=== PATIENT | female | born 1995 | race Caucasian/White ===

== ENCOUNTER 2018-09-24 08:26 | Inpatient (IN) | payer MEDICAID ==
[~2018-09-24] VITALS: Ht 149.9 cm; Wt 68.0 kg
--- NOTE | 2018-09-24 08:46 | TRIAGE ---
OB Triage Datetime Report Generated by CPN: 09/24/2018 08:46 Datetime: 09/24/2018 08:30 Assessment Type: Triage Maternal Assessment Level of Consciousness: Fully Conscious DTR's/Clonus: DTRs 2+; No Clonus Headache: Denies Blurred Vision: No Respiratory Effort: Unlabored; Regular Rhythm; Equal Expansion Breath Sounds, Left: Clear and Equal Breath Sounds, Right: Clear and Equal Nausea/Vomiting: Denies RUQ Epigastric Pain: Denies Lower Extremities Edema: None Degree: None Upper Extremities Edema: None Degree: None Facial Edema: None Fall Risk Assessment History of Falling: (0) No Secondary Diagnosis: (0) No Ambulatory Aid: (0) Bedrest/Nurse Assist IV Therapy: (0) No Gait: (0) Normal/Bedrest/Immobile Mental Status: (0) Oriented to Own Ability Fall Score: 0 Fall Risk Score Definition: No Risk: No action required Datetime: 09/24/2018 08:22 Time of Arrival: 09/24/2018 08:22 EGA: 40.3 Arrived By: Ambulatory Arrived From: Home Chief Complaint: R/O LABOR Movement: Present Contractions: Regular Time Contractions Began: 09/24/2018 05:00 Rupture of Membranes: Denies Vaginal Discharge: Denies Recent Sexual Intercouse: Denies Abdominal Trauma: Not Applicable Patient Complaints: Contractions Additional Patient Complaints: NONE Time Provider Notified: 09/24/2018 08:42 Provider Notified: DIMITRIS Initial Plan: MONITOR AND VE
[2018-09-24 08:47] VITALS: Ht 149.9 cm; Wt 68.0 kg
[2018-09-24] MEDS: LACTATED RINGER'S 1,000 ML IV SCH ×3 (10:28→13:46)
[2018-09-24] MEDS ORDERED: MISOPROSTOL 200 MCG TAB PR PRN ×2 (10:30→18:30)
[2018-09-24] MEDS ORDERED: OXYTOCIN 30 UNITS/LR 500 ML IV SCH ×2 (10:30)
[2018-09-24] MEDS ORDERED: AMPICILLIN 2 GM/NS (PMX) 100 ML IV ONE (10:30)
[2018-09-24] MEDS ORDERED: METHYLERGONOVINE 0.2 MG INJ IM PRN ×2 (10:30→18:30)
[2018-09-24] MEDS ORDERED: OXYTOCIN 30 UNITS/LR 500 ML IV PRN ×2 (10:30→18:30)
[2018-09-24] MEDS ORDERED: CARBOPROST 250 MCG INJ IM PRN ×2 (10:30→18:30)
[2018-09-24] MEDS ORDERED: LIDOCAINE 1% (MPF) 30 ML INJ INJ PRN (10:30)
[2018-09-24] MEDS ORDERED: BUTORPHANOL 2 MG INJ IV PRN (10:30)
[2018-09-24] MEDS ORDERED: FENTAnyl 2MCG/ML-ROPIV 0.2% 100 ML ONE (12:24)
[2018-09-24] MEDS ORDERED: AMPICILLIN 1 GM/NS (PMX) 50 ML IV SCH (13:00)
--- NOTE | 2018-09-24 14:09 | PREAC ---
Date/Time of Note Date/Time of Note DATE: 09/24/18 TIME: 14:06 Anesthesia Eval and Record Evaluation Time Pre-Procedure Interview DATE: 09/24/18 TIME: 12:15 Age 23 Sex female NPO: 8 hrs Preoperative diagnosis iup @ 39 wks., , labor Planned procedure emanuel Past Medical History Past Medical History: Includes : : (1), Para: (0), Gestational age: (39 wks.) Surgery & Anesthesia Issues No known issue Meds Anticoagulation: No Beta Rodolfo within 24 hr: No Reason Beta Rodolfo not given: Pt. not on B-Rodolfo Current Medications Lactated Ringer's 1,000 ml @ 125 mls/hr Q8H IV Last administered on 09/24/18at 13:46; Admin Dose 125 MLS/HR; Start 09/24/18 at 10:16 Butorphanol Tartrate (Stadol) 2 mg Q2H PRN IV .PAIN SCALE 6-10; Start 09/24/18 at 10:30 Lidocaine (Xylocaine 1% (Mpf)) 30 ml ONCE PRN INJ .EPISIOTOMY; Start 09/24/18 at 10:30 Oxytocin/Lactated Ringer's 500 ml @ 500 mls/hr ONCE POST IV ; Start 08/31 10/18 at 10:30 Oxytocin/Lactated Ringer's 500 ml @ 125 mls/hr POST IV ; Start 09/24/18 at 10:30 Oxytocin/Lactated Ringer's 500 ml @ 0 mls/hr ONCE PRN IV .VAGINAL BLEEDING; Start 09/24/18 at 10:30 Methylergonovine Maleate (Methergine) 0.2 mg ONCE PRN IM .VAGINAL BLEEDING; Start 09/24/18 at 10:30 Carboprost Tromethamine (Hemabate) 250 mcg ONCE PRN IM .VAGINAL BLEEDING; Start 09/24/18 at 10:30 Misoprostol (Cytotec) 1,000 mcg ONCE PRN MT .VAGINAL BLEEDING; Start 09/24/18 at 10:30 Meds reviewed: Yes Allergies Coded Allergies: No Known Allergy (Unverified , 09/24/18) Allergies Reviewed: Yes Labs/Studies Labs Reviewed: Reviewed by anesthesiologist Result Diagram: 09/24/18 1025 Laboratory Tests 09/24/18 10:25 Blood Bank Test 09/24/18 10:25 Antibody Screen NEGATIVE Blood Type A POSITIVE Rh Immune Globulin Candidate NO test: Positive Studies: ECG (n/a), CXR (n/a) Pre-procedure Exam Airway: Adequate mouth opening, Adequate thyromental dist Mallampati: Mallampati II Teeth: Normal Lung: Normal Heart: Normal ASA Physical Status ASA physical status: 2 Emergency: E Planned Anesthetic Neuraxial: Epidural Planned Pain Management Epidural, Local by surgeon Pre-operative Attestations Prior to commencing anesthesia and surgery, the patient was re-evaluated, there was verification of: *The patient's identity *The results of appropriate recent lab work and preoperative vital signs *The above evaluation not changing prior to induction *Anesthetic plan, risk benefits, alternative and complications discussed with patient/family; questions answered; patient/family understands, accepts and wishes to proceed. Nurses Director used RENETTA CHAU MD September 24, 2018 14:08
[2018-09-24] MEDS ORDERED: NALOXONE (0.4 MG/ML) INJ IV PRN (14:30)
[2018-09-24] MEDS ORDERED: FENTAnyl 2MCG/ML-ROPIV 0.2% 100 ML BAG EPI SCH (14:30)
[2018-09-24 17:04] VITALS: BP 112/68; PULSE 78; RESP 18
--- NOTE | 2018-09-24 17:44 | HP ---
Date/Time of Note Date/Time of Note DATE: 09/24/18 TIME: 17:41 OB - History Hx of Present Free Text/Dictation Late entry note. Patient seen at 09 :30 this morning 23 years old 1 with single intrauterine at 40 weeks and 3 days with a BUCKY of 09/21/2018 complaining of uterine contractions. She states good movement. She denies nausea, vomiting, shortness of breath, chest pain, headache, visual changes, vaginal bleeding or LOF. Chief Complaint: Uterine contractions Estimated Due Date: September 21, 2018 : 1 Care: Good Care Ultrasounds: Normal mid trimester US Obstetrical Complications: None Medical Complications: None Past Family/Social History * Past Medical, Surgical, Family and Obstetric Histories reviewed, which are unremarkable. Blood Type: A+ OB Admission Exam Vital Signs Vital Signs Vital Signs Date Temp Pulse Resp B/P (MAP) Pulse Ox O2 O2 Flow FiO2 Time Delivery Rate 09/24/18 97.3 78 18 112/68 99 Room Air 17:04 (83) Physical Exam HEENT: WNL Heart: Rhythm Normal Lungs: Clear Abdomen: WNL Extremities: Normal Cervical Dilatation: 5cm Effacement: Other (90%) Station: -2 Membranes: Intact Heart Rate: 130's Accelerations: Accelerations Present Decelerations: No Decelerations Varibility: Moderate Contractions on Admission: < 5 Minutes Apart Intensity: Moderate Last 72 hours Lab Results CBC & BMP 09/24/18 10:25 OB Assessment/Plan Other plan: 23 years 1 with single intrauterine at 40 weeks and 3 days in active labor -FHR: No sign of metabolic acidosis- Category I -Continuous EFM, toco -CBC, blood type and screen -Analgesia options with R/B/A discussed in detail with patient -Epidural per patient request -Please see the orders -A+ -Obtain record Admission, procedures, expectations, risks and possible complications have been discussed in detail with the patient. Risk of vaginal delivery including but not limited to bleeding, infection, cervical laceration, placental retention, injury to fetus, blood transfusion, blood transfusion related infection, risk of anesthesia, adhesion, cervical laceration, episiotomy/laceration, possible delivery with risk of bleeding, infection, injury to other organs (bowel, bladder, ureter, vessels, nerves), injury to fetus, blood transfusion, blood transfusion related infection, risk of anesthesia, scar and hernia formation, needs for future , removal of uterus or any other indicated surgery discussed with the patient. She expressed understanding and repeats the risks. All of her questions were answered. She signed the informed consent. PHYSICIAN'S VERIFICATION OF INFORMED CONSENT The patient was counseled regarding the procedure, its indications, risks, potential complications and alternatives and any questions were answered. Consent was obtained. PLANNED PROCEDURE/TREATMENT: Vaginal delivery, episiotomy, repair of laceration possible delivery PATRICIA SHANKS September 24, 2018 17:44
--- NOTE | 2018-09-24 17:46 | LDN ---
Date/Time of Note Date/Time of Note DATE: 09/24/18 TIME: 17:44 Delivery Summary 23 years old 1 with single intrauterine at 40 weeks and 3 days delivered a viable female over median episiotomy and first-degree laceration 3 9. Nose and mouth suctioned. Rest of body delivered. Placenta delivered spontaneously and intact with three-vessel cord. Laceration and episiotomy repaired with 201 3-0 Vicryl. Patient tolerated procedure well. Time of delivery: 15:49 Weight 7 pounds 8 ounces 9 at 1 minutes and 9 at 5 minutes EBL 300 mL Weeks of Gestation 40 weeks and 3 days Placenta Delivered: Spontaneously Meconium: none Episiotomy: Yes (Median episiotomy) Anesthesia type: Epidural Estimated blood loss: 300 Sponge & Needle done & correct: Yes All needle counts correct: Yes Any foreign bodies felt in the: No Infant Delivery Information Sex Sex: female Apgars 1 Minute: 9 5 Minute: 9 10 Minute: 10 Suctioning Nose & mouth suctioned at sukhjinder: Yes Umbilical Cord Umbilical cord with: 3 Vessels Cord presentations: no nuchal cord Cord Blood was obtained: Yes Mother & Baby Disposition Disposition Mom & Baby to Maternity; Good: Yes PATRICIA SHANKS September 24, 2018 17:46
[2018-09-24] MEDS: DEXTROSE 5%-LR 1,000 ML IV SCH (18:07)
[2018-09-24 18:10] VITALS: BP 120/60; PULSE 80; RESP 18
[2018-09-24] MEDS ORDERED: SENNA/DOCUSATE NA (8.6MG/50MG) TAB PO PRN (18:30)
[2018-09-24] MEDS ORDERED: DIPHENHYDRAMINE 50 MG INJ IV PRN (18:30)
[2018-09-24] MEDS ORDERED: ONDANSETRON 4 MG INJ IV PRN (18:30)
[2018-09-24] MEDS ORDERED: ACETAMINOPHEN 325 MG TAB PO PRN (18:30)
[2018-09-24] MEDS ORDERED: OXYCODONE/ASPIRIN (4.88/325) TAB PO PRN (18:30)
[2018-09-24] MEDS ORDERED: LANOLIN HPA 1 PKT TOP PRN (18:30)
[2018-09-24] MEDS ORDERED: WITCH HAZEL/GLYCERIN PAD PR PRN (18:30)
[2018-09-24] MEDS ORDERED: ZOLPIDEM 5 MG TAB PO PRN (18:30)
[2018-09-24] MEDS ORDERED: BENZOCAINE 20% 56 ML SPRAY TOP PRN (18:30)
[2018-09-24] MEDS ORDERED: DIBUCAINE 1% 30 GM OINT TOP PRN (18:30)
[2018-09-24] MEDS: IBUPROFEN 600 MG TAB PO SCH ×2 (18:30→23:27)
[2018-09-24 19:30] VITALS: BP 115/66; PULSE 96; RESP 19
[2018-09-24] MEDS: LACTATED RINGER'S 1,000 ML IV* SCH (20:19)
[2018-09-24 23:30] VITALS: BP 118/69; PULSE 92; RESP 19
[2018-09-25 03:30] VITALS: BP 107/57; PULSE 77; RESP 19
[2018-09-25] MEDS: LACTATED RINGER'S 1,000 ML IV* SCH ×2 (03:34→10:07)
[2018-09-25] MEDS: DEXTROSE 5%-LR 1,000 ML IV SCH ×2 (03:34→10:07)
--- NOTE | 2018-09-25 04:12 | PAC ---
Date/Time of Note Date/Time of Note DATE: 09/25/18 TIME: 04:12 Post-Anesthesia Notes Post-Anesthesia Note Last documented vital signs Vital Signs Date Temp Pulse Resp B/P (MAP) Pulse Ox O2 O2 Flow FiO2 Time Delivery Rate 09/25/18 98.2 77 19 107/57 Room Air 03:30 (74) 09/24/18 99 17:04 Activity: WNL Respiratory function: WNL Cardiovascular function: WNL Mental status: Baseline Pain reasonably controlled: Yes Hydration appropriate: Yes Nausea/Vomiting absent: Yes RENETTA CHAU MD September 25, 2018 04:12
[2018-09-25] MEDS: IBUPROFEN 600 MG TAB PO SCH ×4 (05:53→23:36)
[2018-09-25 09:00] VITALS: BP 96/55; PULSE 86; RESP 20
--- NOTE | 2018-09-25 15:00 | QN ---
Documentation Comment day #1 Status post Patient stable and afebrile Vital signs stable VS - Last 72 Hours, by Label Date Temp Pulse Resp B/P (MAP) Pulse Ox O2 O2 Flow FiO2 Time Delivery Rate 09/25/18 98.3 86 20 96/55 (69) Room Air 09:00 09/25/18 98.2 77 19 107/57 Room Air 03:30 (74) 09/24/18 98.4 92 19 118/69 Room Air 23:30 (85) 09/24/18 99.0 96 19 115/66 Room Air 19:30 (82) 09/24/18 98.9 80 18 120/60 Room Air 18:10 (80) 09/24/18 97.3 78 18 112/68 99 Room Air 17:04 (83) Hematology - 72 Hrs Test 09/24/18 10:25 09/25/18 06:30 Hematocrit 40.7 % (37.0-47.0) 35.0 % (37.0-47.0) L Hemoglobin 13.6 g/dl (12.0-16.0) 11.7 g/dl (12.0-16.0) L Mean Corpuscular 29.8 pg (29.0-33.0) 29.8 pg (29.0-33.0) Hemoglobin Mean Corpuscular 33.4 g/dl (32.0-37.0) 33.4 g/dl (32.0-37.0) Hemoglobin Concent Mean Corpuscular Volume 89.1 fl (82.0-101.0) 89.3 fl (82.0-101.0) Mean Platelet Volume 10.3 fl (7.4-10.4) 10.2 fl (7.4-10.4) Platelet Count 247 10^3/UL (140-415) 202 10^3/UL (140-415) Red Blood Count 4.57 10^6/ul (4.20-5.40) 3.92 10^6/ul (4.20-5.40) L Red Cell Distribution 14.6 % (11.5-14.5) H 14.6 % (11.5-14.5) H Width White Blood Count 8.8 10^3/ul (4.8-10.8) 11.3 10^3/ul (4.8-10.8) #H Abdomen soft, fundus firm Perineum intact Extremities nontender Assessment and plan Patient stable and doing well Continue with routine care TEX MARI MD September 25, 2018 15:00
[2018-09-25 16:00] VITALS: BP 96/57; PULSE 91; RESP 18
[2018-09-25 19:35] VITALS: BP 108/54; RESP 18
[2018-09-26 03:35] VITALS: BP 106/52; PULSE 83; RESP 18
[2018-09-26] MEDS: IBUPROFEN 600 MG TAB PO SCH ×2 (05:34→12:38)
[2018-09-26 08:00] VITALS: BP 98/48; PULSE 76; RESP 18
[2018-09-26] MEDS ORDERED: MEASLES,MUMPS,RUBELLA VACCINE INJ SC* ONE (09:00)
[2018-09-26] MEDS ORDERED: DIPHTH/TET/ACEL PERTUSS (ADULT) 0.5 ML VIAL IM* ONE (09:00)
--- NOTE | 2018-09-26 11:53 | QN ---
Documentation Comment PPD# 2 is stable afebrile tolerates diet No VB +bm +VOIDS VS stable Gen NAD Abd soft NT ND Genitalia No blood at perineum --->discharge home with precautions RADHA PACHECO M.D. September 26, 2018 11:53
--- NOTE | 2018-09-26 11:54 | DS ---
Date/Time of Note Date/Time of Note DATE: 09/26/18 TIME: 11:53 Discharge Summary Admission/Discharge Info Admit Date/Time September 24, 2018 at 08:42 Discharge Date/Time 09/26/2018 Discharge Diagnosis Patient Condition: Good Hospital Course uneventful Primary Care Provider Care Physician RADHA Block M.D. September 26, 2018 11:54
--- NOTE | 2018-09-27 15:24 | DELSUM ---
Delivery Summary A-C Datetime Report Generated by CPN: 09/27/2018 15:24 DELIVERY PERSONNEL Manager Of Organizational Development: Cubil, Maddy MATERNAL INFORMATION Delivery Anesthesia: Epidural Medications in Delivery: pitocin Delivery QBL (ml): 300 Placenta Cultured: No LABOR SUMMARY EDC: 09/21/2018 00:00 No. Babies in Womb: 1 Attempted: No Labor Anesthesia: Epidural LABOR INFORMATION Reason for Induction: Not Applicable Onset of Labor: 09/24/2018 05:00 Complete Dilatation: 09/24/2018 15:16 Oxytocin: N/A Group B Beta Strep: Negative Antibiotics # of Doses: 0 Steroids Given: None Reason Steroids Not Administered: Not Applicable MEMBRANES Membranes Rupture Method: Spontaneous Rupture of Membranes: 09/24/2018 12:26 Length of Rupture (hr): 3.38 Amniotic Fluid Color: Clear Amniotic Fluid Amount: Moderate Amniotic Fluid Odor: None STAGES OF LABOR Stage 1 hr: 10 Stage 1 min: 16 Stage 2 hr: 0 Stage 2 min: 33 Stage 3 hr: 0 Stage 3 min: 4 Total Time in Labor hr: 10 Total Time in Labor min: 53 VAGINAL DELIVERY Episiotomy: Median Laceration Extension: N/A Laceration Type: None Laceration Repair: No Initial Vag Sponge Count: 10+10+10 Final Vag Sponge Count: 30 Initial Vag Sharps Count: 3 Final Vag Sharps Count: 3 Sponge Count Correct: Yes; Vaginal Sweep Performed Sharps Count Correct: Yes BABY A INFORMATION Delivery Date/Time: 09/24/2018 15:49 Method of Delivery: Vaginal Born in Route : No : N/A Forceps: N/A Vacuum Extraction: N/A Shoulder Dystocia : N/A SHOULDER DYSTOCIA BABY A Delivery Date/Time: 09/24/2018 15:49 PRESENTATION/POSITION BABY A Presentation: Cephalic Cephalic Presentation: Vertex Vertex Position: Left Occipital Anterior Breech Presentation: N/A PLACENTA INFORMATION BABY A Placenta Delivery Time : 09/24/2018 15:53 Placenta Method of Delivery: Spontaneous Placenta Status: Delivered SCORES BABY A Heart Rate 1 min: >100 bpm Resp Effort 1 min: Good Cry Reflex Irritability 1 min: Cough/Sneeze/Pulls Away Muscle Tone 1 min: Active Motion Color 1 min: Body Belle, Extremit Blue Resuscitation Effort 1 min: Tactile Stimulation SCORE 1 MIN: 9 Heart Rate 5 min: >100 bpm Resp Effort 5 min: Good Cry Reflex Irritability 5 min: Cough/Sneeze/Pulls Away Muscle Tone 5 min: Active Motion Color 5 min: Body Belle, Extremit Blue Resuscitation Effort 5 min: Tactile Stimulation SCORE 5 MIN: 9 INFORMATION BABY A Gestational Age at Delivery: 40.3 Gestational Status: Full Term- 39- 40.6 Weeks Infant Outcome : Liveborn Condition : Stable Sex: Female IDENTIFICATION/MEDS BABY A ID Band Number: [id number] ID Band Location: Right Leg; Left Arm Sensor Applied: Yes Sensor Number: [id number] Sensor Location : Cord Clamp Vitamin K Given : Not Given Erythromycin Given: Not Given WEIGHT/LENGTH BABY A Infant Birthweight (gm): 3395 Weight (lb): 7 Infant Weight (oz): 8 Infant Length (in): 20.00 Infant Length (cm): 50.80 CORD INFORMATION BABY A No. Cord Vessels: 3 Nuchal Cord : N/A Cord Blood Taken: Yes Suction: Mouth; Nose ASSESSMENT BABY A Complications: Multiple Variable Decels Physical Findings at Delivery: Caput Succedaneum Infant Respirations: Appears Normal [employer] Operator/ALS Called : No Infant Care By: shaka rnc Transferred To: Remains with Mother
--- NOTE | 2018-09-27 22:14 | NSTRPT ---
NST Information Datetime Report Generated by CPN: 09/27/2018 22:14 Datetime: 09/22/2018 08:11 NST Information EGA: 40.1 Test Number: 12 Time on Monitor: 09/22/2018 08:33 Time off Monitor: 09/22/2018 08:56 NST Duration (Min): 23 Reason for NST: Other Reason for NST Other: Velamentous cord insertion Test and Monitor Explained: Monitor Explained; Test Explained; Verbalized Understanding Pulse: 73 Resp: 18 SBP: 109 DBP: 66 Test Evaluation NST Interventions: Reposition Patient; Acoustic Stimulation NST Interventions Other: 0841 REPOSITION TO MATERNAL RIGHT;0842 FAS floowed by accel to 150 Patient States Movement: Present Contraction Frequency: none FHR Baseline : 130 Variability: Moderate 6-25bpm Decelerations: None FHR Category: Category I NST Results: Reactive Comments: To US- ILA 14.0cm cephalic Electronically Signed By E-Signature: with User ID: [id number] Datetime: 09/19/2018 08:10 NST Information EGA: 39.5 NST Duration (Min): 25 Datetime: 09/15/2018 08:07 NST Information EGA: 39.1 NST Duration (Min): 20 Datetime: 09/07/2018 08:14 NST Information EGA: 38.0 NST Duration (Min): 28 Datetime: 09/04/2018 08:02 NST Information EGA: 37.4 NST Duration (Min): 26 Datetime: 08/31/2018 11:34 NST Information EGA: 37.0 NST Duration (Min): 23 Datetime: 08/29/2018 08:13 NST Information EGA: 36.5 NST Duration (Min): 24 Datetime: 08/25/2018 08:06 NST Information EGA: 36.1 NST Duration (Min): 26 Datetime: 08/22/2018 08:14 NST Information EGA: 35.5 NST Duration (Min): 29 Datetime: 08/18/2018 08:30 NST Information EGA: 35.1 NST Duration (Min): 26 Datetime: 08/15/2018 09:02 NST Information EGA: 34.5 NST Duration (Min): 22 Datetime: 08/11/2018 09:29 NST Information EGA: 34.1 NST Duration (Min): 15
== END 2018-09-26 15:24 | disposition home or self-care (01) | DRG 807 ==
LOC: OBT 08:26 → L-D 08:27 → OBT 08:42 → L-D 08:42 → PP1 18:00
PROVIDERS: ADMIT Obstetrics & Gynecology; ATTEND Obstetrics & Gynecology
PROC: 10E0XZZ Delivery of Products of Conception, External Approach (ICD-10-PCS; principal; 2018-09-24)
PROC: 0W8NXZZ Division of Female Perineum, External Approach (ICD-10-PCS; 2018-09-24)
PROC: 0HQ9XZZ Repair Perineum Skin, External Approach (ICD-10-PCS; 2018-09-24)
DX: O48.0 Post-term pregnancy (principal); Z37.0 Single live birth; Z3A.40 40 weeks gestation of pregnancy; O70.0 First degree perineal laceration during delivery
CPT/HCPCS: 62322; 85025; 85610; 85730; 86592; 86762; 86850; 86900; 86901; 87340; G0463; J2210; J2590; J3010; J7120; J7121